=== PATIENT | male | born 1965 | race Caucasian/White ===

== ENCOUNTER 2021-11-02 11:13 | Outpatient (CLI) | payer BC | END 2021-11-02 11:14 | disposition home or self-care (01) | LOC: CSHSPEC 11:13 | PROVIDERS: ATTEND Family Medicine | DX: G56.23 Lesion of ulnar nerve, bilateral upper limbs (principal); M54.12 Radiculopathy, cervical region; R29.898 Other symptoms and signs involving the musculoskeletal system; Z95.0 Presence of cardiac pacemaker; M50.321 Other cervical disc degeneration at C4-C5 level; M50.223 Other cervical disc displacement at C6-C7 level | CPT/HCPCS: 71045; 72141 ==